=== PATIENT | female | born 1960 | race Caucasian/White ===

== ENCOUNTER 2020-03-15 15:39 | Emergency (ER) | payer BC, SELFPAY ==
--- NOTE | 2020-03-15 | XR_ITS ---
EXAMINATION: XR WRIST, LEFT CLINICAL INFORMATION: Pain after fall COMPARISON: None TECHNIQUE: PA, lateral, and oblique views of the left wrist. FINDINGS: Bones appear to be diffusely osteopenic. Acute, comminuted, mildly impacted fracture of the distal radial metaphysis with 0.2 cm cortical bone offset, posteriorly. A nondisplaced fracture extends distally to the radial articular surface at the lunate facet, posteriorly. There is 8 degrees posterior tilt of the radial articular surface. Soft tissues are swollen around the fractured distal radius/wrist. An avulsion fracture at the tip of the ulnar styloid is minimally displaced. The carpal bones are intact. 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 Findings include 0.5 cm subarticular cyst of the distal pole of the scaphoid. XR/XR wrist LT 2V IMPRESSION: * Acute, comminuted, mildly impacted fracture of the distal radius. * Minimally displaced avulsion fracture at the tip of the ulnar styloid process. * No evidence of carpal bone fracture. * There is at least moderate osteoarthritis of the triscaphe and first carpometacarpal joints.
[2020-03-15 16:24] VITALS: BP 110/62; PULSE 74; RESP 16; TEMP 36.7; O2SAT 98; BMI 18.5
--- NOTE | 2020-03-15 16:34 | ED_ITS ---
HPI - Extremity Problem General Chief complaint: Extremity Injury, Upper Stated complaint: Fall/Arm pain Time Seen by Provider: 03/15/20 16:25 Source: patient Mode of arrival: ambulatory Limitations: no limitations History of Present Illness HPI Narrative: Patient comes emergency room complaining of left wrist pain. Patient states earlier today, she tripped while hiking. Patient states she fell with her arm flexed against her body, did not have time to react and put her arms up. Patient did not hit her head, did not lose consciousness, denies being on blood thinners. Related Data Previous Rx's Medication Instructions Recorded tramadol 50 mg PO Q8H PRN #6 tab 03/15/20 Allergies Allergy/AdvReac Type Severity Reaction Status Date / Time doxycycline [Doxycycline] Allergy Intermediate HIVES Unverified 11/14/19 14:49 codeine [Codeine] AdvReac Unknown VOMITING Unverified 11/14/19 14:49 levofloxacin [From Levaquin] AdvReac Unknown PANIC Unverified 11/14/19 14:49 ATTACK Review of Systems Review of Systems: Constitutional : No Weight loss, No Fever, No Chills, No Night Sweats, No Fatigue, No Malaise ENT/Mouth : No Hearing loss, No Ear Pain, No Nasal Congestion, No Sinus Pain, No Hoarseness, No sore throat, No Rhinorrhea, No Swallowing Difficulty Eyes: No Eye Pain, No Swelling, No Redness, No Foreign Body, No Discharge, No Vision Changes Cardiovascular : No Chest Pain, No SOB, No Dyspnea on Exertion, No Orthopnea, No Edema, No Palpitations Respiratory : No Cough, No Sputum, No Wheezing, No Smoke Exposure, No Dyspnea Gastrointestinal : No Nausea, No Vomiting, No Diarrhea, No Constipation, No abdominal Pain, No Hematochezia, No Melena Genitourinary : no irregular bleeding, No Dysuria, No Urinary Frequency, No Hematuria, No Urinary Incontinence, No Urgency, No Flank Pain, No Urinary Flow Changes, No Hesitancy Musculoskeletal : Complaining of left wrist pain, No Myalgias, No Joint Swelling Skin : No Skin Lesions, No rash Neuro : No Weakness, No Numbness, No Paresthesias, No Loss of Consciousness, No Dizziness, No Headache Psych : No Anxiety/Panic, No Depression, No SI/HI/AH/VH, No Social Issues, Heme/Lymph: No Bruising, No Bleeding,No Lymphadenopathy Endocrine : No Polyuria, No Polydipsia, No Temperature Intolerance COUNT INCLUDES [facility] Past Medical History Medical History Asthma Surgical History History of hernia surgery Hx of hand surgery Social History Social History Smoked in Last 30 Days: No Use of substances other than those prescribed or required for medical reasons: No Advance Directives: No Advance Directives Information Provided: Yes Physical Exam Vital Signs: Vital Signs: Last Vital Signs Temp 98.1 F 03/15/20 16:24 Pulse 74 03/15/20 16:24 Resp 16 03/15/20 16:24 BP 110/62 03/15/20 16:24 Pulse Ox 98 03/15/20 16:24 Body Mass Index 18.5 Appearance: Alert. Oriented X3. No acute distress. Eyes: Pupils equal, round and reactive to light. ENT: Pharynx normal. Neck: Normal inspection. Neck supple. No lymph nodes noted. No crepitus CVS: Normal heart rate and rhythm. Pulses normal. Normal S1 and S2 Respiratory: No respiratory distress. Breath sounds normal. No Wheezing. No rales Abdomen: Soft and nontender. No rigidity. No distention. good BS x4 Skin: Skin warm and dry. Normal skin color. Normal skin turgor. Extremities: No lower extremity edema. No lower extremity edema. No Lacerations. No Rash. Patient is able to flex and extend the elbow on the left side, abduct the left arm, left shoulder pain on palpation, no clavicular pain. Patient is able to open hand or fingers of her left hand. Patient complaining of pain to palpation over the wrist Neuro: Oriented X 3. No motor deficit. No sensory deficit. Moving all extermities. No slurred speech.. Course Course Course Narrative: I discussed the x-ray with the patient, patient has nondisplaced small fractures. Reduction is not indicated at this time. Patient was placed on a splint and instructed to follow-up with orthopedics. MDM - Extremity (Nontraumatic) Imaging Data Wrist x-ray: Radiologist's impression: FINDINGS: Bones appear to be diffusely osteopenic. Acute, comminuted, mildly impacted fracture of the distal radial metaphysis with 0.2 cm cortical bone offset, posteriorly. A nondisplaced fracture extends distally to the radial articular surface at the lunate facet, posteriorly. There is 8 degrees posterior tilt of the radial articular surface. Soft tissues are swollen around the fractured distal radius/wrist. An avulsion fracture at the tip of the ulnar styloid is minimally displaced. The carpal bones are intact. 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 Findings include 0.5 cm subarticular cyst of the distal pole of the scaphoid. XR/XR wrist LT 2V IMPRESSION: * Acute, comminuted, mildly impacted fracture of the distal radius. * Minimally displaced avulsion fracture at the tip of the ulnar styloid process. * No evidence of carpal bone fracture. * There is at least moderate osteoarthritis of the triscaphe and first carpometacarpal joints.. Discharge Plan Discharge Clinical Impression: Fracture of wrist Qualifiers: Encounter type: initial encounter Fracture type: closed Laterality: left Qualified Code(s): S62.102A - Fracture of unspecified carpal bone, left wrist, initial encounter for closed fracture Patient Disposition: Home, Self-Care Instructions: Wrist Fracture in Adults (ED) Additional Instructions: Please follow-up with orthopedics. Please follow-up with your primary care physician tomorrow. If you have any worsening or new symptoms, please return to the emergency room or call 911 Prescriptions: New tramadol 50 mg tablet 50 mg PO Q8H PRN (Reason: pain) Qty: 6 RF: 0 Referrals: Hemant Rosales MD [Physician] - 1 day
[2020-03-15] MEDS: Acetaminophen 325 MG TABLET 650 MG PO (16:44)
== END 2020-03-15 17:36 | disposition home or self-care (01) ==
PROVIDERS: Emergency Provider Emergency Medicine; PCP Family Medicine
DX: S62.102A Fracture of unspecified carpal bone, left wrist, initial encounter for closed fracture (principal); M25.532 Pain in left wrist; S62.637A Displaced fracture of distal phalanx of left little finger, initial encounter for closed fracture; W01.0XXA Fall on same level from slipping, tripping and stumbling without subsequent striking against object, initial encounter; Y93.01 Activity, walking, marching and hiking; Y92.828 Other wilderness area as the place of occurrence of the external cause; Y99.9 Unspecified external cause status; Z79.899 Other long term (current) drug therapy
CPT/HCPCS: 73100; 99283; 99284

== ENCOUNTER 2023-01-21 13:07 | Emergency (ER) | payer OTHER, SELFPAY ==
[2023-01-21 13:52] VITALS: RESP 18; BMI 18.5
--- NOTE | 2023-01-21 14:10 | ECG_ITS ---
Test Reason : MEDICAL CLEARANCE Blood Pressure : / mmHG Vent. Rate : 051 BPM Atrial Rate : 051 BPM P-R Int : 162 ms QRS Dur : 082 ms QT Int : 454 ms P-R-T Axes : 068 032 051 degrees QTc Int : 418 ms Sinus bradycardia Otherwise normal ECG When compared with ECG of 02-APR-2012 19:34, No significant change was found Referred By: Mena Brannon Electronically Signed By:ILDA GAGNON MD
--- NOTE | 2023-01-21 14:10 | PC.NURSE ---
patient is alert and oriented and able to make needs known. Patient arrived from main ED. Patient stated they felt they were having a panic attack this morning but it was lasting longer than normal so they came in to get checked out. Patient denies SI/HI/AH/VH. Patient is able to ambulate. Patient states they are feeling much better now. Patient in room visiting with at this time.
--- NOTE | 2023-01-21 14:14 | ED.ANXIETY ---
HPI - Anxiety General Chief Complaint: Psychiatric Symptoms Stated Complaint: crisis episode Time Seen by Provider: 01/21/23 14:01 Source: patient and family Mode of arrival: ambulatory Limitations: no limitations History of Present Illness HPI narrative: 62 yo female with PMH of panic attacks prior to arrival had 3 hour episode of crying likely brought on by thanksgiving but her HR went to 49 at oint point so she panicked more thinking she was having a heart attack. She came to get checked out. Though on arrival she was able to calm down and her symptoms are resolved she feels much better now and has no SI/HI and is ready to go home complaint: anxiety Onset (ago): hour(s) (3+) Symptoms: palpitations and sense of impending doom Severity: severe Quality: improving (resolved) Place: home History of similar episodes: Yes Provoking factors: emotional stress Relieving factors: other (talking with partner) Exacerbating factors: nothing Associated symptoms: denies other symptoms Related Data Home Medications Medication Instructions Recorded Confirmed clonazepam 0.5 mg tablet 0.5 mg PO BID 01/21/23 01/21/23 duloxetine 20 mg capsule,delayed 20 mg PO BID 01/21/23 01/21/23 release Allergies Allergy/AdvReac Type Severity Reaction Status Date / Time doxycycline [Doxycycline] Allergy Intermediate HIVES Unverified 04/26/22 10:30 codeine [Codeine] AdvReac Unknown VOMITING Unverified 04/26/22 10:30 levofloxacin [From Levaquin] AdvReac Unknown PANIC Unverified 04/26/22 10:30 ATTACK Review of Systems Review of Systems: Constitutional : No Fever, No Chills ENT/Mouth : No Ear Pain, No Nasal Congestion, No sore throat Eyes: No Eye Pain, No Swelling, No Redness Cardiovascular : No Chest Pain, No SOB Respiratory : No Cough, No Sputum, No Dyspnea Gastrointestinal : No Nausea, No Vomiting, No Diarrhea, No Hematochezia, No Melena Genitourinary : No Dysuria, No Urinary Frequency, No Hematuria Musculoskeletal : No Myalgias Skin : No Skin Lesions, No rash Neuro : No Weakness, No Numbness, No Paresthesias, No Dizziness, No Headache Psych : positive Anxiety, no Depression, no SI/HI All other systems reviewed and are negative [facility] Past Medical History Attestation statement: The following information was validated with the patient. Source: old records reviewed Medical History Asthma Surgical History Hx of hand surgery History of hernia surgery Social History (Updated 01/21/23 @ 14:34 by Mena Brannon DO) Patient Tobacco Use Status: Never used Tobacco Physical Exam Vital Signs: Vital Signs: Last Vital Signs Resp 18 01/21/23 13:52 BMI result Body Mass Index 18.5 Appearance: Alert. Oriented X3. No acute distress. Eyes: Pupils equal, round and reactive to light. ENT: Pharynx normal. Neck: Normal inspection. Neck supple. CVS: Normal heart rate and rhythm. Pulses normal. Respiratory: No respiratory distress. Breath sounds normal. Abdomen: Soft and nontender. Skin: Skin warm and dry. Normal skin color. Normal skin turgor. Extremities: No lower extremity edema. No calf ttp Neuro: Oriented X 3. No motor deficit. No sensory deficit. Medical Decision Making Medical Decision Making [facility] Narrative: 62 yo female with PMH of panic attacks now here with c/o resolved but prolonged panic attack x 3 hours - HR went to 49. At this time symptoms gone and feels much better no CP/SOB, normal neuro exam will obtain EKG to rule out any pathology though trigger admittedly was likely thanksgiving Differential Diagnosis Differential Diagnoses: The differential diagnosis associated with the presentation includes anxiety, palpitations, panic attack Admission/Observation Consideration of admission/observation: Escalation of care including admission/observation considered can be dc home at baseline Lab Data [facility] Lab Attestation statement: I reviewed the patient's lab results. Independent Interpretation I performed an independent interpretation of an: EKG Interpretation: Rate: 51 Rhythm: NSR [place]: normal Normal P waves. Normal MANAV. Normal QRS complex. ST T wave : normal no GENA qTC: normal prior studies: no acute ischemia The study has been interpreted contemporaneously by me. . Independent Historian Clinical information obtained from an independent historian. History obtained from or confirmed by: Spouse Discharge Plan Discharge Clinical Impression: Panic attack Patient Disposition: Home, Self-Care Instructions: Panic Attack (ED) Additional Instructions: your EKG showed no signs of a heart attack. return for worsening symptoms, numbness, weakness, confusion, or any other concerns. continue to follow up with your outpatient mental health providers Prescriptions: No Action clonazepam 0.5 mg tablet 0.5 mg PO BID duloxetine 20 mg capsule,delayed release(DR/EC) 20 mg PO BID
[2023-01-21 14:31] VITALS: RESP 18
--- NOTE | 2023-01-21 14:36 | PC.NURSE ---
Patient advocating for discharge home. Patient denies SI/HI. Patient discharged from facility with belongings.
== END 2023-01-21 14:37 | disposition home or self-care (01) ==
PROVIDERS: Emergency Provider Emergency Medicine; PCP Family Medicine
DX: F41.0 Panic disorder [episodic paroxysmal anxiety] (principal)
CPT/HCPCS: 93005; 99284

== ENCOUNTER 2023-04-02 16:40 | Emergency (ER) | payer OTHER, SELFPAY ==
--- NOTE | ~2023-04-02 | XR_ITS ---
EXAMINATION: XR ELBOW, LEFT CLINICAL INFORMATION: Injury to the left elbow. COMPARISON: None available. TECHNIQUE: AP, lateral, and oblique views of the left elbow. FINDINGS: A small linear lucency is noted on the radial aspect of the radial head on some of the views concerning for nondisplaced radial head fracture. Elbow joint alignment is maintained. There are findings suggestive of elbow joint effusion. No additional acute fractures of the visualized osseous structures are seen. No evidence of soft tissue air or radiopaque foreign body. XR/XR elbow LT min 3V IMPRESSION: Nondisplaced fracture of the radial head on the radial aspect is suspected. Elbow joint effusion. Elbow joint alignment is maintained.
[2023-04-02 17:06] VITALS: BP 129/72; PULSE 52; RESP 16; TEMP 36.6; O2SAT 98; BMI 18.2
--- NOTE | 2023-04-02 22:02 | ED_ITS ---
HPI - Fall General Chief Complaint: Fall Stated Complaint: fell hiking, broken arm? Time Seen by Provider: 04/02/23 22:02 Source: patient and family Mode of arrival: ambulatory Limitations: no limitations History of Present Illness HPI Narrative: 62 yo female not on thinners here with c/o fall on left elbow after tripping on stump while hiking. No headstrike no LOC. hurts to move left elbow she is R hand dominant. No prior injury to L elbow in past MD complaint: fall Onset (ago): day(s) (today) Fall from: standing Fall witnessed: yes, by family Place fall occurred: other (outdoors) Loss of consciousness: none Prolonged down time: no Symptoms prior to fall: none Context: tripped/slipped Location of injury - extremities: left: elbow Severity: moderate Quality: dull and aching Associated symptoms (after fall): denies Related Data Home Medications Medication Instructions Recorded Confirmed clonazepam 0.5 mg tablet 0.5 mg PO BID 01/21/23 01/21/23 duloxetine 20 mg capsule,delayed 20 mg PO BID 01/21/23 01/21/23 release Allergies Allergy/AdvReac Type Severity Reaction Status Date / Time doxycycline [Doxycycline] Allergy Intermediate HIVES Unverified 04/26/22 10:30 codeine [Codeine] AdvReac Unknown VOMITING Unverified 04/26/22 10:30 levofloxacin [From Levaquin] AdvReac Unknown PANIC Unverified 04/26/22 10:30 ATTACK Review of Systems Review of Systems: Constitutional : No Fever, No Chills Cardiovascular : No Chest Pain, No SOB Respiratory : No Cough, No Dyspnea Gastrointestinal : No Nausea, No Vomiting, No Diarrhea, No abdominal Pain Genitourinary : No Dysuria, No Hematuria Musculoskeletal : positive joint pain, No Myalgias, pos Joint Swelling Skin : No Skin lacerations, No rash Neuro : No Weakness, No Numbness, No Loss of Consciousness, No Dizziness, No Headache Psych : No Anxiety/Panic, No Depression All other systems reviewed and are negative [facility] Past Medical History Attestation statement: The following information was validated with the patient. Source: old records reviewed Medical History Asthma Surgical History Hx of hand surgery History of hernia surgery Social History Social History Patient Tobacco Use Status: Never used Tobacco Physical Exam Vital Signs: Vital Signs: Last Vital Signs Temp 97.9 F 04/02/23 17:06 Pulse 52 04/02/23 17:06 Resp 16 04/02/23 17:06 BP 129/72 04/02/23 17:06 Pulse Ox 98 04/02/23 17:06 O2 Del Method Room Air 04/02/23 17:06 BMI result Body Mass Index 18.2 Appearance: Alert. Oriented X3. No acute distress. Eyes: Pupils equal, round and reactive to light. ENT: Pharynx normal. Neck: Normal inspection. Neck supple. CVS: Normal heart rate and rhythm. Pulses normal. Respiratory: No respiratory distress. Breath sounds normal. Abdomen: atraumatic Skin: Skin warm and dry. Normal skin color. Normal skin turgor. Extremities: normal ROM of R knee, L elbow ttp and pain along radial head small joint effusion - distal NV intact, no wrist or shoulder deformity or pain Neuro: Oriented X 3. No motor deficit. No sensory deficit. Course Course Course Narrative: radial head fracture sling ordered she will follow up with [facility]. Procedures Orthopedic Splinting/Casting Injury #1: Side: left Upper Extremity Injury Location: shoulder Upper Extremity Immobilizer: sling/shoulder immobilizer Additional Comments: NV intact Medical Decision Making Medical Decision Making MDM Narrative: 62 yo female with injury to L elbow after a fall she has isolated trauma to L elbow at this time will obtain xray - she is NV intact. No signs of head trauma Differential Diagnosis Differential Diagnoses: The differential diagnosis associated with the presentation includes sprain, strain, fracture Independent Interpretation I performed an independent interpretation of an: Plain X-Ray (radial head fracture) Radiology Impression Discussion of test interpretation with radiology: I have reviewed the radiologist's reading. Independent Historian Clinical information obtained from an independent historian. History obtained from or confirmed by: Spouse Prescription Management I considered prescription management with: Pain Medication (patient declined) Discharge Plan Discharge Clinical Impression: Closed fracture of radial head Qualifiers: Encounter type: initial encounter Fracture alignment: nondisplaced Laterality: left Qualified Code(s): S52.125A - Nondisplaced fracture of head of left radius, initial encounter for closed fracture Patient Disposition: Home, Self-Care Instructions: Elbow Fracture (ED) Additional Instructions: can move wrist and fingers. wear sling except to shower. follow up with orthopedics - call to schedule appointment. you can follow up with [facility] as well return for worsening pain, numbness, tingling, blue fingers or any other concerns. FINDINGS: A small linear lucency is noted on the radial aspect of the radial head on some of the views concerning for nondisplaced radial head fracture. Elbow joint alignment is maintained. There are findings suggestive of elbow joint effusion. No additional acute fractures of the visualized osseous structures are seen. No evidence of soft tissue air or radiopaque foreign body. XR/XR elbow LT min 3V IMPRESSION: Nondisplaced fracture of the radial head on the radial aspect is suspected. Elbow joint effusion. Elbow joint alignment is maintained. Prescriptions: No Action clonazepam 0.5 mg tablet 0.5 mg PO BID duloxetine 20 mg capsule,delayed release(DR/EC) 20 mg PO BID Referrals: Familia Sanches PA-C [[facility]] - (any provider call to schedule outpatient follow up)
[2023-04-02 22:45] VITALS: BP 126/74; PULSE 82; RESP 16; O2SAT 97
== END 2023-04-02 23:05 | disposition home or self-care (01) ==
PROVIDERS: Emergency Provider Emergency Medicine; PCP Family Medicine
DX: S52.125A Nondisplaced fracture of head of left radius, initial encounter for closed fracture (principal); M25.522 Pain in left elbow; W01.0XXA Fall on same level from slipping, tripping and stumbling without subsequent striking against object, initial encounter; Y93.31 Activity, mountain climbing, rock climbing and wall climbing; Y92.89 Other specified places as the place of occurrence of the external cause; Y99.8 Other external cause status
CPT/HCPCS: 73080; 99283; 99284

== ENCOUNTER 2023-12-15 08:09 | Outpatient (AMB) | payer OTHER, SELFPAY ==
--- NOTE | 2023-12-15 08:51 | MHC.OFFWIV ---
Intake Vital Signs 12/15/23 08:52 Height 5 ft 4 in Weight 106 lb BMI 18.2 BP 112/64 Blood Pressure Location Lt brachial Position Sitting Pulse 59 Pulse Source Pulse Oximeter Temp 98.1 F Temp Source Oral Pulse Oximetry (%) 98 Oxygen Delivery Method Room Air Intake Visit Reasons: EP Sinus congestion, loss of voice. Intake Note: Patient here for sinus congestion, headache, nilat ear pain and pressure behing eyes. Patient Tobacco Use Status: Never used Tobacco Allergies doxycycline [Doxycycline] Allergy (Intermediate, Unverified 12/15/23 08:52) HIVES codeine [Codeine] Adverse Reaction (Unknown, Unverified 12/15/23 08:52) VOMITING levofloxacin [From Levaquin] Adverse Reaction (Unknown, Unverified 12/15/23 08:52) PANIC ATTACK Do you need a note to return to daycare/school/sports/work: No HPI HPI Comments History of Present Illness Details Patient is a 63-year-old female complaining of 8 days of pressure behind her eyes, sinus congestion and pain, loss of voice and bilateral ear pain as well as a headache and a cough. She denies any shortness of breath or fevers. She tells me she does have a history of asthma and allergies and does take a daily allergy medication. She tells me that she went to her PCP on Monday and they told her that most sinus infections are viral and she should be feeling better in a few days but she states she is feeling worse. She has been using Robitussin, Mucinex nasal spray and her Neti pot. [facility] Medical History Asthma Surgical History Hx of hand surgery History of hernia surgery Social History Patient Tobacco Use Status: Never used Tobacco Review of Systems Const All systems reviewed & are unremarkable except as noted in HPI and below Physical Exam Vital Signs: Last Vital Signs Temp 98.1 F 12/15/23 08:52 Pulse 59 12/15/23 08:52 BP 112/64 12/15/23 08:52 Pulse Ox 98 12/15/23 08:52 Oxygen Delivery Method Room Air 12/15/23 08:52 BMI result Body Mass Index 18.2 Const General: cooperative, healthy appearing, comfortable and no acute distress Orientation/consciousness: patient oriented x3 Limitations: no limitations HEENT Head: Yes normal to inspection Ears: hearing grossly normal bilaterally, external ears normal and TM's normal bilaterally General nose exam: Normal external nose present, Normal nares present and No nasal discharge present Face and sinus: Yes normal facial exam and Yes sinus tenderness (Bilateral maxillary) Mouth: Normal oral and palatal mucosa present and moist mucous membranes Throat: Yes tonsils normal, Yes uvula midline and Yes posterior oropharynx abnormal (Erythema) Eyes General: appearance normal, both eyes and all related structures Neck Neck: Yes normal visual inspection Resp Effort & Inspection: normal respiratory effort, able to speak in complete sentences, Actively coughing, no respiratory distress, not tachypneic, no tripod positioning and no use of accessory muscles Auscultation: clear to auscultation bilaterally Cardio Rate: regular rate Rhythm: regular rhythm Heart sounds: normal S1 and S2 Skin General skin exam: no rashes or lesions noted Neuro General: patient oriented x3 Extrem General: Yes normal to inspection and Yes no clubbing, cyanosis or edema Assessment & Plan Assessment & Plan (1) Sinusitis, acute maxillary: Code(s): J01.00 - Acute maxillary sinusitis, unspecified Qualifiers: Recurrence: non-recurrent Qualified Code(s): J01.00 - Acute maxillary sinusitis, unspecified Plan: Vital signs are stable and patient is well-appearing, lung sounds are clear. As it has been 8 days and she seems to be getting worse, I will prescribe Augmentin and a burst of prednisone, reviewed risks and benefits of prednisone with the patient. Plan See above Medications: New prednisone 20 mg PO DAILY 5 tabs 0RF amoxicillin-pot clavulanate 875-125 mg 1 tab PO Q12H 14 tabs 0RF Coding Level of Care Code New Pt Level 3 (02586) Diagnoses Acute non-recurrent maxillary sinusitis J01.00 Recurrence: non-recurrent
[2023-12-15 08:52] VITALS: BP 112/64; PULSE 59; TEMP 36.7; O2SAT 98; BMI 18.2
== END 2023-12-15 09:12 | disposition home or self-care (01) ==
PROVIDERS: PCP Family Medicine; Visit Provider Physician Assistant
DX: J01.00 Acute maxillary sinusitis, unspecified (principal)

== ENCOUNTER → 2023-12-15 08:09 | Outpatient (BNVA) | payer OTHER, SELFPAY | PROVIDERS: PCP Family Medicine; Visit Provider Physician Assistant | DX: J01.00 Acute maxillary sinusitis, unspecified (principal) | CPT/HCPCS: 99202 ==

== ENCOUNTER 2024-01-20 18:10 | Emergency (ER) | payer OTHER, SELFPAY ==
[2024-01-20] VITALS (9 sets, daily range): BP systolic 91–117; BP diastolic 40–59; PULSE 55–70; RESP 12–16; TEMP 36.9–37.7; O2SAT 94–98; BMI 22.7
--- NOTE | ~2024-01-20 | XR_ITS ---
EXAMINATION: XR CHEST CLINICAL INFORMATION: weakness COMPARISON: Chest radiograph dated 12/27/2018. TECHNIQUE: Frontal view of the chest was obtained. FINDINGS: The heart is normal in size. The lungs appear hyperinflated suggesting chronic obstructive pulmonary disease. No consolidation. No pleural effusion or pneumothorax. No acute osseous abnormality. XR/XR chest 1V IMPRESSION: No acute cardiopulmonary disease. Electronically signed by: Owen Gross DO 01/20/2024 09:27 PM EST
--- NOTE | 2024-01-20 18:16 | ECG_ITS ---
Test Reason : WEAKNESS Blood Pressure : / mmHG Vent. Rate : 057 BPM Atrial Rate : 057 BPM P-R Int : 156 ms QRS Dur : 074 ms QT Int : 422 ms P-R-T Axes : 072 041 046 degrees QTc Int : 410 ms Sinus bradycardia Otherwise normal ECG When compared with ECG of 21-JAN-2023 14:26, No significant change was found Referred By: Gely Chiang Electronically Signed By:SACAH JUÁREZ MD
[2024-01-20 18:41] LABS: MANUAL DIFF FLAG NO
[2024-01-20 18:49] LABS: Basophils Percent Auto 0.3 % (0-2); Eosinophils Percent Auto 0.6 % (0-4); Hematocrit 36.3 % (37.0-47.0); Hemoglobin 12.4 g/dl (12.0-16.0); Imm Gran Abs Auto 0.02 X10*3/uL (0.00-0.03); Imm Gran Pct Auto 0.3 % (0.0-0.4); Lymphocytes Absolute Auto 0.5 X10*3/uL (1.2-4.9); Lymphocytes Percent Auto 7.2 % (20-40); Mean Corpuscular HGB Conc 34.2 g/dl (31.0-35.0); Mean Corpuscular Hemoglobin 30.9 pg (27.0-33.0); Mean Corpuscular Volume 90.5 fL (80.0-98.0); Mean Platelet Volume 10.2 fL (9.4-12.3); Monocytes Absolute Auto 0.6 X10*3/uL (0.1-1.2); Monocytes Percent Auto 7.8 % (2-11); Neutrophils Percent Auto 83.8 % (45-73); Platelet Count 186 X10*3/uL (160-400); Red Blood Count 4.01 X10*6/uL (4.20-5.50); Red Cell Distribution Width 13.5 % (11.0-16.0); White Blood Count 7.2 X10*3/uL (4.8-10.8)
[2024-01-20 18:51] LABS: INTERNATIONAL NORM RATIO 1.1 (0.9-1.1); Prothrombin Time 12.4 SEC (10.9-12.4)
[2024-01-20 19:03] LABS: Alanine Aminotransferase 22 U/L (0-31); Albumin Level 3.4 g/dL (3.5-5.0); Alkaline Phosphatase 55 U/L (39-117); Anion Gap 9 (12-20); Aspartate Amino Transferase 27 U/L (5-31); Bilirubin Direct 0.1 mg/dL (0.0-0.5); Bilirubin Total 0.3 mg/dL (0.0-1.0); Blood Urea Nitrogen 16 mg/dL (9-16); Calcium 8.2 mg/dL (8.4-10.2); Carbon Dioxide 25 mmol/L (22-29); Chloride 105 mmol/L (96-108); Creatinine Clr Calc Pharmacy 53.6; Estimated Glomerular Filt Rate > 60; Glucose Random 111 mg/dL (60-115); Potassium 4.2 mmol/L (3.3-5.1); Sodium 135 mmol/L (135-145); Total Protein 5.9 g/dL (6.5-8.0)
[2024-01-20 19:39] LABS: Influenza A PCR NEGATIVE (Negative); Influenza B PCR NEGATIVE (Negative); Resp Syncy Virus RNA Qual PCR NEGATIVE (Negative); SARS COV2 PCR INHOUSE NEGATIVE (Negative)
[2024-01-20] MEDS: 0.9 % Sodium Chloride 1,000 ML 999 ML IV (20:15)
--- NOTE | 2024-01-20 20:20 | ED_ITS ---
HPI - General Adult General Chief complaint: Weakness Stated complaint: feeling weak/feverish, bit by tik x2 wks Time Seen by Provider: 01/20/24 18:50 Source: patient, RN notes reviewed and old records reviewed Mode of arrival: EMS Limitations: no limitations History of Present Illness ED Provider: Poonam HPI narrative: 63-year-old female presents for evaluation of weakness, fever and dizziness. Patient reports her symptoms started yesterday. She reports a fever of 101 yesterday She denies any headache, abdominal pain, chest pain. She does endorse generalized body aches. Patient states that she was bit by a tick 2 weeks ago that she took off of her neck She reports that she noticed it within an hour of returning from a hike so does not believe the tick was on her for a long time. She was treated for Lyme disease this summer after testing positive for Lyme disease She reports her symptoms are reminiscent of previous tick-borne illnesses that she has been treated for. She has a chronic cough related to postnasal drip but denies any new cough, shortness of breath Denies any urinary complaints The patient went to urgent care earlier today and was given a prescription for Augmentin. She reports that about 3 hours after taking the Augmentin on an empty stomach she developed nausea and had a lightheaded episode while sitting in the chair. She states that the room went dark She is unsure if she had a loss of consciousness but did not fall or hit her head No other complaints or concerns at this time Related Data Home Medications ?Medication ?Instructions ?Recorded ?Confirmed clonazepam 0.5 mg tablet 0.5 mg PO BID 01/21/23 01/21/23 sertraline 100 mg tablet 100 mg PO DAILY 12/15/23 Previous Rx's ?Medication ?Instructions ?Recorded amoxicillin 875 mg-potassium 1 tab PO Q12H #14 tabs 12/15/23 clavulanate 125 mg tablet prednisone 20 mg tablet 20 mg PO DAILY #5 tabs 12/15/23 Allergies Allergy/AdvReac Type Severity Reaction Status Date / Time doxycycline [Doxycycline] Allergy Intermediate HIVES Verified 01/20/24 18:20 codeine [Codeine] AdvReac Unknown VOMITING Verified 01/20/24 18:20 levofloxacin [From Levaquin] AdvReac Unknown PANIC Verified 01/20/24 18:20 ATTACK Review of Systems 2 Constitutional: Constitutional: Reports body ache(s), Reports chills, Reports fever(s), Denies frequent falls and Denies headache(s) Eyes: Eyes: Denies blurry vision and Denies loss of vision ENT: Denies vertigo, Denies dizziness, Denies headache(s), Denies hoarseness and Denies lip swelling Cardiovascular: Cardiovascular: Denies chest pain, Reports syncope and Denies dyspnea Respiratory: Respiratory: Denies cough and Denies dyspnea Gastrointestinal: Gastrointestinal: Denies abdominal pain, Denies nausea and Denies vomiting Musculoskeletal: Musculoskeletal: Denies back pain Integumentary/Breasts: Skin/Breast: Denies rash Neurologic: Denies vertigo, Denies dizziness, Reports syncope, Denies frequent falls, Denies headache(s) and Denies loss of vision Psychiatric: Psychiatric: Denies anxiety Allergic/Immunologic: Allergic/Immunologic: Denies lip swelling PMFSH Past Medical History Medical History Asthma Surgical History Hx of hand surgery History of hernia surgery Social History Social History Patient Tobacco Use Status: Never used Tobacco Smoked in Last 30 Days: No Use of substances other than those prescribed or required for medical reasons: No Advance Directives: No Advance Directives Information Provided: No Do you have a plan to hurt others: No Plan Patient : No Physical Exam ED Vital Signs: Vital Signs - 24 hr 01/20/24 18:16 01/20/24 19:14 01/20/24 19:17 Temperature 99.5 F 99.8 F Pulse Rate 63 63 Respiratory Rate 16 12 Blood Pressure 108/40 L 99/45 L 91/51 L Pulse Oximetry 97 94 Oxygen Delivery Method Room Air Room Air 01/20/24 19:35 01/20/24 19:36 01/20/24 19:38 Temperature Pulse Rate 58 62 70 Respiratory Rate Blood Pressure 93/50 L 101/56 L 108/57 L Pulse Oximetry Oxygen Delivery Method 01/20/24 19:39 01/20/24 21:56 Temperature 99.3 F 98.5 F Pulse Rate 64 64 Respiratory Rate 16 16 Blood Pressure 117/59 L 103/45 L Pulse Oximetry 96 97 Oxygen Delivery Method Room Air BMI result Body Mass Index 22.7 Const General: healthy appearing, comfortable, no acute distress, alert and awake Nutritional Appearance: well nourished Orientation/consciousness: patient oriented x3 HENMT Head: Yes normocephalic and Yes atraumatic Eyes Eyelids: Yes eyelids normal Conjunctivae: conjunctivae normal Sclerae: sclerae normal Corneas: corneas normal Pupils: Equal, round and reactive pupils present EOM: EOMs intact bilaterally Neck Neck: Yes full ROM Resp Effort & Inspection: normal respiratory effort, able to speak in complete sentences and not labored Cardio Rate: regular rate Rhythm: regular rhythm GI Inspection: No distended Palpation (GI): Soft to palpation, not firm, nontender, no guarding and not rigid Skin General skin exam: elasticity normal Neuro General: patient oriented x3 Cranial nerves: Yes CN's II-XII intact bilaterally, Yes Equal, round and reactive pupils present and Yes Bilaterally intact EOM present Cognition (Neuro): normal cognition Extrem Other: Moving all extremities well without any obvious deformities Course Reevaluation(s) Reevaluation #1: Patient's urinalysis shows no signs of infection, chest x-ray is clear, again she has no abdominal pain or tenderness on exam. Doubt surgical pathology, will defer CT imaging of the abdomen pelvis. Patient's nausea is likely a side effect of the Augmentin, but if there was any source of infection is likely tick-borne. We will have the patient continue the Augmentin and she will follow up with her PCP, she was instructed to return for new or worsening symptoms Time: 23:11 Medications Administered Discontinued Medications Generic Name Dose Route Start Last Admin Trade Name Freq PRN Reason Stop Dose Admin Sodium Chloride 1,000 mls @ 999 mls/hr 01/20/24 20:15 01/20/24 21:59 Ns IV 01/20/24 21:15 Infused .Q1H1M DANIE Infusion Medical Decision Making Medical Decision Making [facility] Narrative: 63-year-old female presents for evaluation of generalized body aches, fevers, lightheadedness. She had a questionable syncopal episode prior to arrival. She did not have any chest pain, shortness of breath palpitations. She would feel somewhat nauseous and lightheaded after taking Augmentin on an empty stomach. There is no leukocytosis but the patient does have a left shift, unclear etiology. This could be a viral illness or a tick-borne illness. Patient's chest x-ray does not show any focal pneumonia, she has no abdominal pain or tenderness on exam. Plan for urinalysis. There is no headache, neck pain or confusion to suggest encephalitis or meningitis. The patient does not have any rashes on her body. Still awaiting serology to evaluate for influenza, COVID-19 Differential Diagnosis Differential Diagnoses: The differential diagnosis associated with the presentation includes Viral syndrome Fever Orthostasis Syncope Pneumonia Bronchitis Tick-borne illness Lab Data MDM Lab Attestation statement: I reviewed the patient's lab results. See above, no electrolyte abnormalities 01/20/24 18:36 01/20/24 18:36 Labs: Lab Results 01/20/24 01/20/24 Range/Units 18:36 21:59 WBC 7.2 (4.8-10.8) X10*3/uL RBC 4.01 L (4.20-5.50) X10*6/uL Hgb 12.4 (12.0-16.0) g/dl Hct 36.3 L (37.0-47.0) % MCV 90.5 (80.0-98.0) fL MCH 30.9 (27.0-33.0) pg MCHC 34.2 (31.0-35.0) g/dl RDW 13.5 (11.0-16.0) % Plt Count 186 (160-400) X10*3/uL MPV 10.2 (9.4-12.3) fL Immature Gran % (Auto) 0.3 (0.0-0.4) % Neut % (Auto) 83.8 H (45-73) % Lymph % (Auto) 7.2 L (20-40) % [place] % (Auto) 7.8 (2-11) % Eos % (Auto) 0.6 (0-4) % Baso % (Auto) 0.3 (0-2) % Lymph # (Auto) 0.5 L (1.2-4.9) X10*3/uL [place] # (Auto) 0.6 (0.1-1.2) X10*3/uL Eos # (Auto) 0.0 (0.0-0.4) X10*3/uL Baso # (Auto) 0.0 (0.0-0.2) X10*3/uL Abs Immat Gran (auto) 0.02 (0.00-0.03) X10*3/uL Absolute Neuts (auto) 6.0 (2.0-8.3) x10*3/uL Absolute Nucleated RBC 0.000 (0.0-0.012) X10*3/uL Nucleated RBC % (auto) 0.0 (0.0-0.2) /100WBC PT 12.4 (10.9-12.4) SEC INR 1.1 (0.9-1.1) Sodium 135 (135-145) mmol/L Potassium 4.2 (3.3-5.1) mmol/L Chloride 105 (96-108) mmol/L Carbon Dioxide 25 (22-29) mmol/L Anion Gap 9 L (12-20) BUN 16 (9-16) mg/dL Creatinine 0.82 (0.5-1.4) mg/dL Estim Creat Clear Calc 53.6 Estimated GFR > 60 Random Glucose 111 (60-115) mg/dL Calcium 8.2 L (8.4-10.2) mg/dL Magnesium 2.0 (1.6-2.6) mg/dL Total Bilirubin 0.3 (0.0-1.0) mg/dL Direct Bilirubin 0.1 (0.0-0.5) mg/dL AST 27 (5-31) U/L ALT 22 (0-31) U/L Alkaline Phosphatase 55 (39-117) U/L Total Protein 5.9 L (6.5-8.0) g/dL Albumin 3.4 L (3.5-5.0) g/dL Urine Color Yellow Urine Appearance Cloudy Urine pH 8.0 (5.0-9.0) Ur Specific [place] 1.015 (1.005-1.025) Urine Protein Negative (Neg-Trace) mg/dL Urine Glucose (UA) Negative (Negative) mg/dL Urine Ketones Negative (Negative) mg/dL Urine Blood Negative (Negative) Urine Nitrite Negative (Negative) Ur Leukocyte Esterase Large (3+) H (Negative) Urine RBC 0-2 (0-2) /HPF Urine WBC 21-50 H (0-5) /HPF Ur Squamous Epith Cells 6-10 (0-2) /HPF Urine Bacteria None Seen (None Seen) Hyaline Casts 0-2 (0-2) /LPF Influenza Type A (PCR) NEGATIVE (Negative) Influenza Type B (PCR) NEGATIVE (Negative) RSV RNA Qual (PCR) NEGATIVE (Negative) SARS-CoV-2 RNA (RT-PCR) NEGATIVE (Negative) Independent Interpretation I performed an independent interpretation of an: EKG (Sinus bradycardia with a rate of 57 beats per minute. No ST segment changes) and Plain X-Ray (No focal infiltrates) Discharge Plan Discharge Clinical Impression: Weakness Patient Disposition: Home, Self-Care Instructions: Weakness (ED) Additional Instructions: Your workup in the emergency room today was reassuring. This includes your EKG, chest x-ray blood work, and urinalysis. We will call you if you test positive for any tick borne disease I do recommend that you continue the antibiotic as prescribed Follow-up with your primary doctor, return for new or worsening symptoms Prescriptions: No Action clonazepam 0.5 mg tablet 0.5 mg PO BID sertraline 100 mg tablet 100 mg PO DAILY prednisone 20 mg tablet 20 mg PO DAILY Qty: 5 0RF amoxicillin-pot clavulanate 875-125 mg tablet 1 tab PO Q12H Qty: 14 0RF Print Language: Turkish
--- NOTE | 2024-01-20 22:00 | MHC.EDTECH ---
2200 Rounding done ,vitals taken ,Urine sample collected and sent to lab .Call denny within Pt reach .
[2024-01-20 22:13] LABS: Appearance Urine Cloudy; Color Urine Yellow; Glucose Urine UA Negative (Negative); Leukocyte Esterase Urine Large (3+) (Negative); Nitrite Urine Negative (Negative); Specific Gravity - Urine 1.015 (1.005-1.025); UMIC TRIGGER UACC YES; Urine Blood Negative (Negative); Urine Ketones Negative (Negative); Urine Protein Negative (Neg-Trace)
[2024-01-20 22:37] LABS: Bacteria Urine None Seen (None Seen); Hyaline Casts Urine 0-2 /LPF (0-2); RBC Urine 0-2 /HPF (0-2); UACC Culture Trigger YES; WBC Urine 21-50 /HPF (0-5)
[2024-01-22 12:43] LABS: Lyme Abs Screen <0.90 index
[2024-01-22 22:39] LABS: A. Phagocytphilium DNA,RT-PCR NOT DETECTED (NOT DETECTED); Babesia Microti DNA, RT-PCR NOT DETECTED (NOT DETECTED); Borrelia Miyamotoi,DNA RT-PCR NOT DETECTED (NOT DETECTED); E.Chaffeensis DNA RT-PCR NOT DETECTED (NOT DETECTED); Lyme(Borrelia ssp)DNA RT-PCR NOT DETECTED (NOT DETECTED)
== END 2024-01-20 23:35 | disposition home or self-care (01) ==
PROVIDERS: Physician Assistant; Emergency Provider Internal Medicine; PCP Family Medicine
DX: R53.1 Weakness (principal); Z03.818 Encounter for observation for suspected exposure to other biological agents ruled out; R00.1 Bradycardia, unspecified; J45.909 Unspecified asthma, uncomplicated
CPT/HCPCS: 0241U; 71045; 80048; 80076; 81001; 83735; 85025; 85610; 86617; 86618; 87086; 87088; 87186; 87468; 87469; 87478; 87484; 87798; 93005; 96360; 96361; 99284; 99285

== ENCOUNTER → 2024-01-20 18:16 | Outpatient (BNV) | payer OTHER, SELFPAY | PROVIDERS: Emergency Provider Internal Medicine; PCP Family Medicine; Visit Provider Internal Medicine Cardiovascular Disease | DX: R00.1 Bradycardia, unspecified (principal); R53.1 Weakness | CPT/HCPCS: 93010 ==

== ENCOUNTER 2024-01-26 11:30 | Emergency (ER) | payer OTHER, SELFPAY ==
--- NOTE | 2024-01-26 12:00 | ED_ITS ---
HPI - General Adult General Stated complaint: sent in by MD for IV anitib Related Data Home Medications ?Medication ?Instructions ?Recorded ?Confirmed clonazepam 0.5 mg tablet 0.5 mg PO BID 01/21/23 01/21/23 sertraline 100 mg tablet 100 mg PO DAILY 12/15/23 Previous Rx's ?Medication ?Instructions ?Recorded amoxicillin 875 mg-potassium 1 tab PO Q12H #14 tabs 12/15/23 clavulanate 125 mg tablet prednisone 20 mg tablet 20 mg PO DAILY #5 tabs 12/15/23 Allergies Allergy/AdvReac Type Severity Reaction Status Date / Time doxycycline [Doxycycline] Allergy Intermediate HIVES Verified 01/26/24 12:03 codeine [Codeine] AdvReac Unknown VOMITING Verified 01/26/24 12:03 levofloxacin [From Levaquin] AdvReac Unknown PANIC Verified 01/26/24 12:03 ATTACK PMFSH Past Medical History Medical History Asthma Surgical History Hx of hand surgery History of hernia surgery Social History Social History Patient Tobacco Use Status: Never used Tobacco Course Course Course Narrative: This is an RME: Additional HPI, ROS, PE not included below will be deferred to primary provider. RME assessment and note performed by: Kaley Grimes PA-C This is a 63-year-old female presents emergency department with ongoing fatigue and headaches. She was seen several days ago, and was told to come back to the emergency room due to urine culture coming back positive for Pseudomonas. She has an allergy to Levaquin. All other antibiotics Sensitivities are IV. She continues to have fatigue and headaches. no urine symptoms. Plan: labs, EKG cultures, UA Discharge Plan Discharge Prescriptions: No Action clonazepam 0.5 mg tablet 0.5 mg PO BID sertraline 100 mg tablet 100 mg PO DAILY prednisone 20 mg tablet 20 mg PO DAILY Qty: 5 0RF amoxicillin-pot clavulanate 875-125 mg tablet 1 tab PO Q12H Qty: 14 0RF Print Language: Greenlandic
[2024-01-26 12:01] VITALS: BP 115/58; PULSE 61; RESP 16; TEMP 37; O2SAT 98; BMI 18.2
--- NOTE | 2024-01-26 12:02 | ECG_ITS ---
Test Reason : ABN LABS Blood Pressure : / mmHG Vent. Rate : 050 BPM Atrial Rate : 050 BPM P-R Int : 134 ms QRS Dur : 080 ms QT Int : 446 ms P-R-T Axes : 000 -10 010 degrees QTc Int : 406 ms Sinus bradycardia Otherwise normal ECG When compared with ECG of 20-JAN-2024 18:26, No significant changes seen Referred By: Kaley Grimes Electronically Signed By:KASSIE JAMESON
--- NOTE | 2024-01-26 13:32 | ED_ITS ---
HPI - General Adult General Chief complaint: Recheck/Abnormal Lab/Rx Stated complaint: sent in by MD for IV anitib Time Seen by Provider: 01/26/24 13:20 Source: patient Mode of arrival: ambulatory Limitations: no limitations History of Present Illness ED Provider: Sam Mae PA-C HPI narrative: 63-year-old female call back to the ED to receive IV antibiotics for abnormal urine culture. Patient grew Pseudomonas aeruginosa and was called to return to the ED. Patient states feeling lousy but has no urinary symptoms. Patient denies any fever, chills, or abdominal pain. Patient denies any chest pain or shortness of breath. Patient states no fever or chills. Related Data Home Medications ?Medication ?Instructions ?Recorded ?Confirmed clonazepam 0.5 mg tablet 0.5 mg PO BID 01/21/23 01/21/23 sertraline 100 mg tablet 100 mg PO DAILY 12/15/23 Previous Rx's ?Medication ?Instructions ?Recorded amoxicillin 875 mg-potassium 1 tab PO Q12H #14 tabs 12/15/23 clavulanate 125 mg tablet prednisone 20 mg tablet 20 mg PO DAILY #5 tabs 12/15/23 Allergies Allergy/AdvReac Type Severity Reaction Status Date / Time doxycycline [Doxycycline] Allergy Intermediate HIVES Verified 01/26/24 12:03 codeine [Codeine] AdvReac Unknown VOMITING Verified 01/26/24 12:03 levofloxacin [From Levaquin] AdvReac Unknown PANIC Verified 01/26/24 12:03 ATTACK Review of Systems 2 Review of Systems: Describes lousy as fatigue. Yes all other systems are reviewed and are negative PMFSH Past Medical History Medical History Asthma Surgical History Hx of hand surgery History of hernia surgery Social History Social History Patient Tobacco Use Status: Never used Tobacco Smoked in Last 30 Days: No Use of substances other than those prescribed or required for medical reasons: No Advance Directives: No Advance Directives Information Provided: Yes Do you have a plan to hurt others: No Plan Physical Exam ED Vital Signs: Vital Signs - 24 hr 01/26/24 12:01 01/26/24 17:16 Temperature 98.6 F 98.2 F Pulse Rate 61 63 Respiratory Rate 16 18 Blood Pressure 115/58 L 103/55 L Pulse Oximetry 98 97 Oxygen Delivery Method Room Air Room Air BMI result Body Mass Index 18.2 Const General: cooperative, healthy appearing, comfortable, no acute distress, well developed, alert, awake and Physically active Orientation/consciousness: patient oriented x3 [facility] Head: Yes normal to inspection, Yes No palpable skull fracture present, Yes normocephalic and Yes atraumatic Eyes General: appearance normal, both eyes and all related structures Neck Neck: Yes normal visual inspection, Yes full ROM, Yes no lymphadenopathy, Yes no meningeal signs, Yes trachea midline, Yes supple, No anterior neck swelling and No tender Chest Chest palpation & inspection: normal inspection of the chest and normal palpation of entire chest wall Resp Effort & Inspection: normal respiratory effort and able to speak in complete sentences Auscultation: clear to auscultation bilaterally Cardio Jugular venous distension: no JVD Heart sounds: S1 normal heart sound present and S2 normal heart sound present GI Inspection: Yes normal to inspection Palpation (GI): Soft to palpation, not firm, nontender, no guarding and not rigid General: No CVA tenderness and Yes no CVA tenderness Back/Spine/Pelvis Back: no CVA tenderness, No CVA tenderness and No back tenderness Skin General skin exam: no rashes or lesions noted and elasticity normal Neuro General: patient oriented x3, gait normal, tone normal, moves all extremities, Normal light touch and pain sensation, no meningeal signs, no focal motor deficits, CN's II-XI intact bilaterally and normal sensation to monofilament Extrem General: Yes normal to inspection, Yes full ROM and Yes capillary refill normal Psych Appearance: grossly normal, well kempt and not disheveled Medications Administered Discontinued Medications Generic Name Dose Route Start Last Admin Trade Name Laloq PRN Reason Stop Dose Admin Acetaminophen 650 mg 01/26/24 19:07 01/26/24 19:17 Acetaminophen 325 Mg Tablet PO 01/26/24 19:08 650 mg ONCE ONE Administration Cefepime HCl 2 gm in 50 mls @ 100 mls/hr 01/26/24 13:29 01/26/24 16:02 Maxipime IV 01/26/24 13:58 Infused ONCE ONE Infusion Medical Decision Making Medical Decision Making [facility] Narrative: Vital signs are stable. Labs drawn in triage. will order cefepime antibiotic to treat Pseudomonas aeruginosa. Patient states also with Levaquin having panic attack with hives so can give oral Cipro. Will speak with hospitalist. 5:30pm: Case was discussed with Dr. Ventura the hospitalist who does not believe patient needs to be admitted he recommends case to be discussed with Dr. Jose infectious disease specialist. Dr. Ventura evaluated patient states patient is asymptomatic and does not need treatment. Case was discussed with Dr. Jose infectious disease specialist and she was informed of patient's labs, urine results, prior urine culture results and physical exam and she agrees patient does not have to be admitted for IV antibiotics or be treated with p.o. antibiotics. Patient informed she will be discharged and if 2nd urine culture positive she will be calledto return to the ED. Patient explained worrisome signs and informed to return to the ED immediately. Not suspecting urosepsis, sepsis, bacteremia, osteomyelitis. Ekg negative STEMI. tow troponin negative. Patietn asymptomatic. Differential Diagnosis Differential Diagnoses: The differential diagnosis associated with the presentation includes (Abnormal labs, UTI) Admission/Observation Consideration of admission/observation: Escalation of care including admission/observation considered Consult Healthcare Provider Management of the patient was discussed with: Hospitalist (Dr. Ventura) and [employer] Assistant Department Head (Dr. Jose) Lab Data MDM Lab Attestation statement: I reviewed the patient's lab results. 01/26/24 13:43 01/26/24 13:43 Labs: Lab Results 01/26/24 01/26/24 Range/Units 13:43 18:57 WBC 5.2 (4.8-10.8) X10*3/uL RBC 4.02 L (4.20-5.50) X10*6/uL Hgb 12.4 (12.0-16.0) g/dl Hct 36.5 L (37.0-47.0) % MCV 90.8 (80.0-98.0) fL MCH 30.8 (27.0-33.0) pg MCHC 34.0 (31.0-35.0) g/dl RDW 12.8 (11.0-16.0) % Plt Count 242 D (160-400) X10*3/uL MPV 10.0 (9.4-12.3) fL Immature Gran % (Auto) 0.2 (0.0-0.4) % Neut % (Auto) 59.4 (45-73) % Lymph % (Auto) 24.2 (20-40) % [place] % (Auto) 10.6 (2-11) % Eos % (Auto) 5.0 H (0-4) % Baso % (Auto) 0.6 (0-2) % Lymph # (Auto) 1.3 (1.2-4.9) X10*3/uL [place] # (Auto) 0.6 (0.1-1.2) X10*3/uL Eos # (Auto) 0.3 (0.0-0.4) X10*3/uL Baso # (Auto) 0.0 (0.0-0.2) X10*3/uL Abs Immat Gran (auto) 0.01 (0.00-0.03) X10*3/uL Absolute Neuts (auto) 3.1 (2.0-8.3) x10*3/uL Absolute Nucleated RBC 0.000 (0.0-0.012) X10*3/uL Nucleated RBC % (auto) 0.0 (0.0-0.2) /100WBC Sodium 136 (135-145) mmol/L Potassium 4.6 (3.3-5.1) mmol/L Chloride 101 (96-108) mmol/L Carbon Dioxide 27 (22-29) mmol/L Anion Gap 13 (12-20) BUN 23 H (9-16) mg/dL Creatinine 0.80 (0.5-1.4) mg/dL Estim Creat Clear Calc 55.3 Estimated GFR > 60 Random Glucose 84 (60-115) mg/dL Lactic Acid 0.4 L (0.5-2.0) mmol/L Calcium 9.0 D (8.4-10.2) mg/dL Magnesium 2.3 (1.6-2.6) mg/dL Total Bilirubin 0.2 (0.0-1.0) mg/dL Direct Bilirubin < 0.2 (0.0-0.5) mg/dL AST 22 (5-31) U/L ALT 21 (0-31) U/L Alkaline Phosphatase 62 (39-117) U/L Troponin I High Sens < 2.7 < 2.7 (<3.5-17.0) ng/L Total Protein 6.7 (6.5-8.0) g/dL Albumin 3.7 (3.5-5.0) g/dL Urine Color Yellow Urine Appearance Clear Urine pH 6.0 (5.0-9.0) Ur Specific [place] 1.010 (1.005-1.025) Urine Protein Negative (Neg-Trace) mg/dL Urine Glucose (UA) Negative (Negative) mg/dL Urine Ketones Negative (Negative) mg/dL Urine Blood Negative (Negative) Urine Nitrite Negative (Negative) Ur Leukocyte Esterase Negative (Negative) Influenza Type A (PCR) NEGATIVE (Negative) Influenza Type B (PCR) NEGATIVE (Negative) RSV RNA Qual (PCR) NEGATIVE (Negative) SARS-CoV-2 RNA (RT-PCR) NEGATIVE (Negative) Independent Interpretation I performed an independent interpretation of an: EKG (negative stemi) Independent Historian Clinical information obtained from an independent historian. History obtained from or confirmed by: Other (patient) External Record Review External record reviewed: Other (prior visit) Discharge Plan Discharge Clinical Impression: Normal exam Patient Disposition: Home, Self-Care Instructions: Normal Exam (ED) Additional Instructions: Presently hospitalist and Infectious Disease doctor does not recommend you to be admitted for IV antibiotics or oral p.o. antibiotics. Return to the ED immediately for any blood in urine, abdominal pain, nausea, vomiting, flank pain, fever, chills, altered mental status, lethargy, auditory/visual hallucinations, chest pain, shortness of breath, rash, or any other concerning symptoms. IF repeat urine culture come back positive you will be called with results and informed to return to the ED immediately. Prescriptions: No Action clonazepam 0.5 mg tablet 0.5 mg PO BID sertraline 100 mg tablet 100 mg PO DAILY prednisone 20 mg tablet 20 mg PO DAILY Qty: 5 0RF amoxicillin-pot clavulanate 875-125 mg tablet 1 tab PO Q12H Qty: 14 0RF Stand Alone Forms: Work/School Release Interventions: ED Discharge Assessment Last Done: 01/26/24 20:03 Discharge Date/Time: 01/26/24 20:04 Print Language: Tajik
[2024-01-26 13:50] LABS: Basophils Percent Auto 0.6 % (0-2); Eosinophils Absolute Auto 0.3 X10*3/uL (0.0-0.4); Hematocrit 36.5 % (37.0-47.0); Hemoglobin 12.4 g/dl (12.0-16.0); Imm Gran Abs Auto 0.01 X10*3/uL (0.00-0.03); Imm Gran Pct Auto 0.2 % (0.0-0.4); Lymphocytes Absolute Auto 1.3 X10*3/uL (1.2-4.9); Lymphocytes Percent Auto 24.2 % (20-40); MANUAL DIFF FLAG NO; Mean Corpuscular Hemoglobin 30.8 pg (27.0-33.0); Mean Corpuscular Volume 90.8 fL (80.0-98.0); Monocytes Absolute Auto 0.6 X10*3/uL (0.1-1.2); Monocytes Percent Auto 10.6 % (2-11); Neutrophils Absolute Auto 3.1 x10*3/uL (2.0-8.3); Neutrophils Percent Auto 59.4 % (45-73); Platelet Count 242 X10*3/uL (160-400); Red Blood Count 4.02 X10*6/uL (4.20-5.50); Red Cell Distribution Width 12.8 % (11.0-16.0); White Blood Count 5.2 X10*3/uL (4.8-10.8)
[2024-01-26 13:51] LABS: Appearance Urine Clear; Color Urine Yellow; Glucose Urine UA Negative (Negative); Leukocyte Esterase Urine Negative (Negative); Nitrite Urine Negative (Negative); Urine Blood Negative (Negative); Urine Ketones Negative (Negative); Urine Protein Negative (Neg-Trace)
[2024-01-26 14:06] LABS: Alanine Aminotransferase 21 U/L (0-31); Albumin Level 3.7 g/dL (3.5-5.0); Alkaline Phosphatase 62 U/L (39-117); Anion Gap 13 (12-20); Aspartate Amino Transferase 22 U/L (5-31); Bilirubin Direct < 0.2 mg/dL (0.0-0.5); Bilirubin Total 0.2 mg/dL (0.0-1.0); Blood Urea Nitrogen 23 mg/dL (9-16); Carbon Dioxide 27 mmol/L (22-29); Chloride 101 mmol/L (96-108); Creatinine Clr Calc Pharmacy 55.3; Estimated Glomerular Filt Rate > 60; Glucose Random 84 mg/dL (60-115); Magnesium 2.3 mg/dL (1.6-2.6); Potassium 4.6 mmol/L (3.3-5.1); Sodium 136 mmol/L (135-145); Total Protein 6.7 g/dL (6.5-8.0)
[2024-01-26 14:07] LABS: Lactic Acid 0.4 mmol/L (0.5-2.0)
[2024-01-26 14:21] LABS: Troponin-I High Sensitivity < 2.7 ng/L (<3.5-17.0)
[2024-01-26] MEDS: cefEPime HCl/D5W 2 GM/50 ML PIGGYBACK IV (14:22)
[2024-01-26 14:27] LABS: Influenza A PCR NEGATIVE (Negative); Influenza B PCR NEGATIVE (Negative); Resp Syncy Virus RNA Qual PCR NEGATIVE (Negative); SARS COV2 PCR INHOUSE NEGATIVE (Negative)
[2024-01-26 17:16] VITALS: BP 103/55; PULSE 63; RESP 18; TEMP 36.8; O2SAT 97
[2024-01-26] MEDS: Acetaminophen 325 MG TABLET 650 MG PO (19:17)
[2024-01-26 19:34] LABS: Troponin-I High Sensitivity < 2.7 ng/L (<3.5-17.0)
[2024-01-26 20:03] VITALS: BP 103/55; PULSE 63; RESP 18; TEMP 36.8; O2SAT 97
== END 2024-01-26 20:04 | disposition home or self-care (01) ==
PROVIDERS: Physician Assistant; Physician Assistant Medical; Emergency Provider Emergency Medicine
DX: R00.1 Bradycardia, unspecified (principal); R79.89 Other specified abnormal findings of blood chemistry; Z79.899 Other long term (current) drug therapy; Z03.818 Encounter for observation for suspected exposure to other biological agents ruled out
CPT/HCPCS: 0241U; 36415; 80048; 80076; 81003; 83605; 83735; 84484; 85025; 87040; 93005; 96365; 96366; 99284; 99285; J0692

== ENCOUNTER → 2024-01-26 12:02 | Outpatient (BNV) | payer OTHER, SELFPAY | PROVIDERS: Emergency Provider Emergency Medicine; Visit Provider Internal Medicine | DX: R00.1 Bradycardia, unspecified (principal) | CPT/HCPCS: 93010 ==

== ENCOUNTER 2024-08-15 16:13 | Emergency (ER) | payer OTHER, SELFPAY ==
--- NOTE | ~2024-08-15 | XR_ITS ---
EXAMINATION: XR WRIST, RIGHT CLINICAL INFORMATION: FOOSH wrist deformity COMPARISON: None available. TECHNIQUE: PA, lateral, and oblique views of the right wrist. FINDINGS: There is a mildly impacted fracture of the distal radius with mild loss of height of the radial styloid. Fracture likely extends to both the distal articular and distal radioulnar joints. There is mild irregularity of the styloid question of an oblique fracture that is not well-demonstrated. There are degenerative changes of the first CMC and STT joints. There is sclerosis and narrowing. Coalition capitate and hamate is suspected. XR/XR wrist RT min 3V IMPRESSION: Mildly impacted distal radial fracture with mild dorsal tilt of the distal articular surface and mild loss of height of the radial styloid. Questionable ulnar styloid fracture. Osteoarthritis involving the first CMC and STT joint. Electronically signed by: Adalberto Way MD 08/15/2024 05:21 PM EDT
--- NOTE | ~2024-08-15 | XR_ITS ---
EXAMINATION: XR HAND, RIGHT CLINICAL INFORMATION: FOOSH wrist deformity COMPARISON: None available. TECHNIQUE: PA, lateral, and oblique views of the right hand. FINDINGS: There is arthrodesis of the PIP joint of third digit with metal hardware in place. Metal ring is present on the fourth proximal digit. Joint space irregularity and marginal osteophytes are evident involving the IP joint of the thumb and the second and third PIP joint. There is also asymmetric narrowing of the fourth and fifth PIP joints with small marginal osteophytes. There is narrowing and sclerosis involving the first carpal metacarpal joint and the scaphoid trapezium trapezoid joint. Distal radial fracture is noted, possibly an oblique ulnar styloid fracture, see wrist x-ray dictation. 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 Distal radial fracture, see wrist dictation Electronically signed by: Adalberto Way MD 08/15/2024 05:18 PM EDT
--- NOTE | ~2024-08-15 | XR_ITS ---
CLINICAL HISTORY: elbow pain 3 views right elbow Comparison Findings: No fractures or dislocations No joint effusion No significant arthritic change No radiopaque foreign body Impression: Normal right elbow. No signs of acute skeletal trauma. This document has been electronically signed by: Ezequiel Alfaro MD on 08/15/2024 18:05:39
[2024-08-15 16:24] VITALS: BP 145/72; PULSE 54; RESP 18; TEMP 36.6; O2SAT 98; BMI 18.4
--- NOTE | 2024-08-15 16:27 | ED.UPPEXIN ---
HPI - Extremity Injury (Upper) General Chief Complaint: Extremity Injury, Upper Stated Complaint: right wrist and right arm injury fall Time Seen by Provider: 08/15/24 16:54 Source: patient and RN notes reviewed Mode of arrival: ambulatory Limitations: no limitations History of Present Illness ED Provider: Kaley Tay PA-C HPI narrative: This is a 64-year-old female, with a past medical history of osteopenia, who presents emergency department with complaints of right hand and wrist pain status post fall on outstretched hand. Patient states that while she was hiking this afternoon she tripped and landed onto her outstretched right hand. She immediately had pain. She is right-hand dominant. Pain worsens with movement and with palpation. Denies taking any medications prior to arrival. She is not on anticoagulation. No other complaints or concerns at this time. MD complaint: injury to: right, wrist and hand Handedness: right Place: outdoors Severity: moderate Relieving factors: none Exacerbating factors: none Context: fall Associated symptoms: denies other symptoms Related Data Home Medications ?Medication ?Instructions ?Recorded ?Confirmed clonazepam 0.5 mg tablet 0.5 mg PO BID 01/21/23 01/21/23 sertraline 100 mg tablet 100 mg PO DAILY 12/15/23 Previous Rx's ?Medication ?Instructions ?Recorded amoxicillin 875 mg-potassium 1 tab PO Q12H #14 tabs 12/15/23 clavulanate 125 mg tablet prednisone 20 mg tablet 20 mg PO DAILY #5 tabs 12/15/23 Allergies Allergy/AdvReac Type Severity Reaction Status Date / Time doxycycline (Doxycycline) Allergy Intermediate HIVES Verified 08/15/24 16:25 codeine (Codeine) AdvReac Unknown VOMITING Verified 08/15/24 16:25 levofloxacin (From Levaquin) AdvReac Unknown PANIC Verified 08/15/24 16:25 ATTACK Review of Systems Review of Systems: Yes all other systems are reviewed and are negative Constitutional: Constitutional: Reports as per HPI [facility] Past Medical History Medical History Asthma Surgical History Hx of hand surgery History of hernia surgery Social History Social History Patient Tobacco Use Status: Never used Tobacco Use of substances other than those prescribed or required for medical reasons: No Advance Directives: No Advance Directives Information Provided: Yes Do you have a plan to hurt others: No Plan Patient : No Physical Exam Vital Signs: Vital Signs: Last Vital Signs Temp 98.6 F 08/15/24 19:38 Pulse 54 08/15/24 19:38 Resp 18 08/15/24 19:38 BP 105/55 L 08/15/24 19:38 Pulse Ox 96 08/15/24 19:38 O2 Del Method Room Air 08/15/24 19:38 BMI result Body Mass Index 18.4 General: Awake, alert, and oriented X3. No acute distress. HEENT: Normal inspection CVS: Normal heart rate and rhythm. Pulses normal. Respiratory: No respiratory distress Skin: Warm, dry, no rashes noted to exposed skin. Normal skin color. Normal skin turgor. Extremities: Obvious bony deformity noted at the distal radius and ulna. Tenderness palpation with ecchymosis seen. No open wounds. Strong radial pulse. Capillary refill less than 2 seconds. able to move all digits. Right elbow with mild TTP, full ROM, no open wounds or skin changes. Neuro: Oriented X 3. No motor deficit. No sensory deficit. Course Course Course Narrative: 08/15/24 1628 SUHAS Borges This is a Rapid Medical Examination (RME) performed by Janett Grier PA-C in triage. Full HPI, ROS, assessment and treatment plan per primary provider in the Main ED. Hx: 64 yo right-hand dominant F here s/p fall onto right UE while hiking. complains of right wrist pain/ deformity, unable to move wrist d/t pain. PE/vitals: noted deformity to right wrist. Radial pulse intact. Sensation intact. Able to move all fingers. Plan: xrs, sling applied in triage. Medications Administered Discontinued Medications Generic Name Dose Route Start Last Admin Trade Name Freq PRN Reason Stop Dose Admin Acetaminophen 975 mg 08/15/24 17:32 08/15/24 17:42 Acetaminophen 325 Mg Tablet PO 08/15/24 17:33 975 mg ONCE ONE Administration Medical Decision Making Medical Decision Making MDM Narrative: This is a 64-year-old female who presents to the emergency department with concerns of right hand and wrist pain status post FOOSH. She denies head strike or LOC. This was a mechanical fall. Patient with obvious bony deformity noted at the distal radius and ulna. Tenderness palpation with ecchymosis seen. Strong radial pulse. Capillary refill less than 2 seconds. X-rays were obtained prior to my evaluation, she does have a mildly impacted distal radius fracture with mild dorsal tilt of the distal articular surface and questionable ulnar styloid fracture. Patient was also complaining of some elbow pain, elbow is nontender with good ROM, however given pain, x-ray was also obtained which was within normal limits. Discussed with othopedic Sarah DAI. No reduction needed. Placed in sugar tong. She is a current patient at [facility], given this advised to f.u with them. Given return precautions. Stable for d.c. Differential Diagnosis Differential Diagnoses: The differential diagnosis associated with the presentation includes Fracture, contusion, sprain, strain Consult Healthcare Provider Management of the patient was discussed with: [facility] Registered Nurse Sarah Heaton PA-C Radiology Impression Discussion of test interpretation with radiology: I have reviewed the radiologist's reading. Radiologist Impression: FINDINGS: There is arthrodesis of the PIP joint of third digit with metal hardware in place. Metal ring is present on the fourth proximal digit. Joint space irregularity and marginal osteophytes are evident involving the IP joint of the thumb and the second and third PIP joint. There is also asymmetric narrowing of the fourth and fifth PIP joints with small marginal osteophytes. There is narrowing and sclerosis involving the first carpal metacarpal joint and the scaphoid trapezium trapezoid joint. Distal radial fracture is noted, possibly an oblique ulnar styloid fracture, see wrist x-ray dictation. 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 Distal radial fracture, see wrist dictation Electronically signed by: Adalberto Way MD 08/15/2024 05:18 PM EDT Dictated By: Adalberto Way MD FINDINGS: There is a mildly impacted fracture of the distal radius with mild loss of height of the radial styloid. Fracture likely extends to both the distal articular and distal radioulnar joints. There is mild irregularity of the styloid question of an oblique fracture that is not well-demonstrated. There are degenerative changes of the first CMC and STT joints. There is sclerosis and narrowing. Coalition capitate and hamate is suspected. XR/XR wrist RT min 3V IMPRESSION: Mildly impacted distal radial fracture with mild dorsal tilt of the distal articular surface and mild loss of height of the radial styloid. Questionable ulnar styloid fracture. Osteoarthritis involving the first CMC and STT joint. Electronically signed by: Adalberto Way MD 08/15/2024 05:21 PM EDT Dictated By: Adalberto Way MD CLINICAL HISTORY: elbow pain 3 views right elbow Comparison Findings: No fractures or dislocations No joint effusion No significant arthritic change No radiopaque foreign body Impression: Normal right elbow. No signs of acute skeletal trauma. This document has been electronically signed by: Ezequiel Alfaro MD on 08/15/2024 18:05:39 Dictated By: Ezequiel Alfaro MD Procedures Orthopedic Splinting/Casting Injury #1: Side: right Upper Extremity Injury Location: wrist and hand Upper Extremity Immobilizer: sling/shoulder immobilizer and sugar tong splint Discharge Plan Discharge Clinical Impression: Fracture of wrist, closed Qualifiers: Laterality: right Patient Disposition: Home, Self-Care Instructions: Wrist Fracture in Adults (ED) Additional Instructions: You were seen in the emergency department after injuring your right wrist. Your x-rays concerning for a impacted distal radius fracture and there is a questionable ulnar styloid fracture. Do not get your splint wet. Wear shoulder immobilizer while walking around as the splint can become very heavy. We placed you in a splint. Please keep splint on until you follow-up with the orthopedic team. Call [facility] as you are already established with them. Please alternate between ibuprofen and or Tylenol as needed for pain and symptoms. If any new or worsening symptoms occur including but not limited to worsening pain, decreased sensation in your fingers, or feeling as though the splint is too tight, please immediately seek emergent care. Prescriptions: No Action clonazepam 0.5 mg tablet 0.5 mg PO BID sertraline 100 mg tablet 100 mg PO DAILY prednisone 20 mg tablet 20 mg PO DAILY Qty: 5 0RF amoxicillin-pot clavulanate 875-125 mg tablet 1 tab PO Q12H Qty: 14 0RF Interventions: ED Discharge Assessment Last Done: 08/15/24 19:38 Discharge Date/Time: 08/15/24 19:39 Print Language: Palestinian
[2024-08-15] MEDS: Acetaminophen 325 MG TABLET 975 MG PO (17:42)
[2024-08-15 19:28] VITALS: BP 105/55; PULSE 54; RESP 18; TEMP 37; O2SAT 96
[2024-08-15 19:38] VITALS: BP 105/55; PULSE 54; RESP 18; TEMP 37; O2SAT 96
== END 2024-08-15 19:39 | disposition home or self-care (01) ==
PROVIDERS: Emergency Provider Emergency Medicine; PCP Family Medicine
DX: S62.101A Fracture of unspecified carpal bone, right wrist, initial encounter for closed fracture (principal); M25.531 Pain in right wrist; M79.641 Pain in right hand; X58.XXXA Exposure to other specified factors, initial encounter; W01.0XXA Fall on same level from slipping, tripping and stumbling without subsequent striking against object, initial encounter; Y93.9 Activity, unspecified; Y92.9 Unspecified place or not applicable; Y99.8 Other external cause status
CPT/HCPCS: 29125; 73080; 73110; 73130; 99283; 99284

== ENCOUNTER → 2024-08-15 16:25 | Outpatient (BNV) | payer OTHER, SELFPAY | PROVIDERS: Emergency Provider Emergency Medicine; PCP Family Medicine; Visit Provider Radiology Diagnostic Radiology | DX: M25.521 Pain in right elbow (principal); M79.641 Pain in right hand; M18.11 Unilateral primary osteoarthritis of first carpometacarpal joint, right hand; W19.XXXA Unspecified fall, initial encounter | CPT/HCPCS: 73080; 73110; 73130 ==